=== PATIENT | female | born 1990 | race African-American/Black ===

== ENCOUNTER 2021-01-02 21:30 | Emergency (ER) | payer SELFPAY ==
[~2021-01-02] VITALS: Ht 170.2 cm; Wt 70.3 kg
[2021-01-02 21:40] VITALS: BP 135/83
--- NOTE | 2021-01-02 21:48 | NUR ---
emt at bed side to wash the wound
[2021-01-02] MEDS ORDERED: TDAP [DIPH/PERTUSSIS/TET] 0.5 ML VIAL IM ONE ×2 (22:00→22:23)
--- NOTE | 2021-01-02 22:13 | NUR ---
NORBERT ORLANDO at bed side
[2021-01-02] MEDS ORDERED: LORAZEPAM 1 MG TABLET ONE (22:22)
[2021-01-02] MEDS ORDERED: LORAZEPAM 1 MG TABLET PO ONE (22:30)
== END 2021-01-02 23:07 | disposition home or self-care (01) ==
LOC: ER 21:33
DX: S61.411A Laceration without foreign body of right hand, initial encounter (principal); F41.9 Anxiety disorder, unspecified; Z23 Encounter for immunization; W25.XXXA Contact with sharp glass, initial encounter; Y93.89 Activity, other specified; Y92.89 Other specified places as the place of occurrence of the external cause; Y99.8 Other external cause status
CPT/HCPCS: 29130; 90471; 90715; 99283; A6403